=== PATIENT | female | born 1965 | race Caucasian/White ===

== ENCOUNTER 2017-06-26 01:01 | Emergency (ER) | payer BC, OTHER ==
[2017-06-26] MEDS ORDERED: Mupirocin 2% OINT* TUBE TOPICAL ONE (01:33)
--- NOTE | 2017-06-26 01:36 | ED ---
Skin Complaint - HPI Summary HPI Summary: 52F presents with swelling and lesion to lower lip for a days. she has history of cold sores but says that is does not feel like a cold sore or look like a cold sore anymore. She states it is causing her lip to swelling and tingling. She denies any one else with a similar rash. She has had impetigo before. She denies any fever. She denies any new products or medications. - History of Current Complaint Chief Complaint: EDRashSkinAbscess Time Seen by Provider: 06/26/17 01:15 Stated Complaint: LIP SWELLING Pain Intensity: 3 - Allergy/Home Medications Allergies/Adverse Reactions: Allergies Allergy/AdvReac Type Severity Reaction Status Date / Time Amoxicillin Allergy Unknown Rash Verified 04/03/13 15:15 Sulindac [From Clinoril] Allergy Unknown Difficulty Verified 04/03/13 15:11 Breathing Azithromycin [From Zithromax] Allergy Tinnitus Verified 04/03/13 15:16 PMH/Surg Hx/FS Hx/Imm Hx Endocrine/Hematology History: Denies: Hx Anticoagulant Therapy Cardiovascular History: Reports: Hx Hypertension Musculoskeletal History: Denies: Hx Rheumatoid Arthritis, Hx Osteoporosis - Cancer History Hx Chemotherapy: No Hx Radiation Therapy: No - Surgical History Surgery Procedure, Year, and Place: 1999 arlene breast reduction, carpal tunnel release in right hand, tonsils and adnoids Infectious Disease History: No Infectious Disease History: Denies: Traveled Outside the [place] in Last 30 Days - Family History Known Family History: Positive: Cardiac Disease - Social History Alcohol Use: Weekly Substance Use Type: Reports: Marijuana Smoking Status (MU): Never Smoked Tobacco Review of Systems Negative: Fever Positive: Other - lower lip swelling and lesion Negative: Chest Pain Negative: Shortness Of Breath All Other Systems Reviewed And Are Negative: Yes Physical Exam Triage Information Reviewed: Yes Vital Signs On Initial Exam: Initial Vitals Temp Pulse Resp BP Pulse Ox 97.4 F 80 16 142/88 97 06/26/17 01:07 06/26/17 01:07 06/26/17 01:07 06/26/17 01:07 06/26/17 01:07 Vital Signs Reviewed: Yes Appearance: Positive: Well-Appearing Skin: Positive: Warm, Dry Head/Face: Positive: Other - swelling to right lower lip mild, yellow crusted lesion on lower lip Eyes: Positive: Normal, EOMI, PHOEBE ENT: Positive: Normal ENT inspection, Pharynx normal, TMs normal Neck: Positive: Supple, Nontender, No Lymphadenopathy Respiratory/Lung Sounds: Positive: Clear to Auscultation, Breath Sounds Present Cardiovascular: Positive: Normal, RRR Diagnostics - Vital Signs Vital Signs Temp Pulse Resp BP Pulse Ox 06/26/17 01:07 97.4 F 80 16 142/88 97 - Laboratory Lab Statement: Any lab studies that have been ordered have been reviewed, and results considered in the medical decision making process. Course/Dx - Course Course Of Treatment: 52F presents with swelling and lesion to lower lip for a days. she has history of cold sores but says that is does not feel like a cold sore or look like a cold sore anymore. She states it is causing her lip to swelling and tingling. She denies any one else with a similar rash. She has had impetigo before. She denies any fever. She denies any new products or medications. on exam has yellow crusted lesion on right side of lower lip with mild lip swelling present. will treat with bactroban topical as only one lesion. explained that is very contigouous and need to wash hands. told to follow up with primary to make sure improving. patient understands and agrees with plan. - Differential Diagnoses - Skin Complaint Differential Diagnoses: Allergic Reaction, Impetigo, Other - cold sore - Diagnoses Provider Diagnoses: Impetigo Discharge - Discharge Plan Condition: Good Disposition: HOME Patient Education Materials: Impetigo (ED) Referrals: Makenna Hinson MD [Primary Care Provider] - Additional Instructions: Place ointment on area three times a day for 5 days If persists after 5 days follow up with primary as will need oral antibioticsa Wash hand frequently Return to Ed if develop any new or worsening symptoms
[2017-06-26 02:01] VITALS: BP 121/83
== END 2017-06-26 02:03 | disposition home or self-care (01) ==
LOC: ED 01:01
DX: L01.00 Impetigo, unspecified (principal)
CPT/HCPCS: 99282